=== PATIENT | male | born 1975 | race Caucasian/White ===

== ENCOUNTER 2022-11-29 15:48 | Emergency (ER) | payer MEDICAID, SELFPAY ==
[2022-11-29 15:50] VITALS: BP 121/84; PULSE 79; RESP 18; TEMP 36.6; O2SAT 98; BMI 23.7
--- NOTE | 2022-11-29 15:53 | ECG_ITS ---
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
--- NOTE | 2022-11-29 15:53 | XR_ITS ---
The [address] [address] Patient Name: ROXY MURILLO MRN: [id number] date: 1975 Sex: M Assigned Patient Location: ER Current Patient Location: ER Accession/Order Number: [id number] Exam Date: 11/29/2022 16:27 Report Date: 11/29/2022 16:53 At the request of: SUNSHINE EUGENE Procedure: XR chest 1V EXAMINATION: XR chest 1V HISTORY: Right elbow pain and eye laceration following fall COMPARISON: None. TECHNIQUE: Portable chest FINDINGS: The lung parenchyma is free of consolidation or infiltrate. No pneumothorax or pleural effusion. The cardiac, mediastinal and hilar contours are normal. The visualized osseous structures exhibit no gross abnormality. XR/XR chest 1V IMPRESSION: No acute cardiopulmonary abnormality. Electronically authenticated by: BRIANNA MCKEON Date: 11/29/2022 16:53
--- NOTE | 2022-11-29 15:53 | XR_ITS ---
The [address] [address] Patient Name: ROXY MURILLO MRN: [id number] date: 1975 Sex: M Assigned Patient Location: ER Current Patient Location: ER Accession/Order Number: [id number] Exam Date: 11/29/2022 16:27 Report Date: 11/29/2022 16:56 At the request of: SUNSHINE EUGENE Procedure: XR pelvis 1-2V EXAM: XR pelvis 1-2V HISTORY: Right elbow pain and eye laceration following fall COMPARISON: None. TECHNIQUE: AP pelvis FINDINGS: IMPRESSION: No visualized fracture, dislocation, subluxation or osseous lesions. The hip joints, pubic symphysis and sacroiliac joints are unremarkable. Patient is status post retrograde intramedullary fixation of the right femur. Electronically authenticated by: BRIANNA MCKEON Date: 11/29/2022 16:56
--- NOTE | 2022-11-29 15:53 | CT_ITS ---
The [address] [address] Patient Name: ROXY MURILLO MRN: [id number] date: 1975 Sex: M Assigned Patient Location: ER Current Patient Location: ER Accession/Order Number: [id number] Exam Date: 11/29/2022 16:04 Report Date: 11/29/2022 16:52 At the request of: SUNSHINE EUGENE Procedure: CT head/brain wo con EXAM: CT head/brain wo con HISTORY: Fall COMPARISON: None. TECHNIQUE: Axial CT images were obtained of the head without intravenous contrast. Multiplanar reconstructions were performed. FINDINGS: No acute intracranial hemorrhage. No acute loss of cantu/white differentiation. There are chronic multifocal areas of encephalomalacia in the frontal lobes bilaterally. The ventricles and sulci are prominent due to parenchymal volume loss. The osseous structures are unremarkable. No soft tissue abnormality identified. The paranasal sinuses and mastoid air cells are clear. Cerumen noted in the left external auditory canal. CT/CT head/brain wo con IMPRESSION: 1. No acute intracranial abnormality. 2. Multifocal chronic frontal infarctions. 3. Parenchymal volume loss. Electronically authenticated by: ROZINA ALEGRIA Date: 11/29/2022 16:52
--- NOTE | 2022-11-29 15:53 | CT_ITS ---
The [address] [address] Patient Name: ROXY MURILLO MRN: [id number] date: 1975 Sex: M Assigned Patient Location: ER Current Patient Location: Accession/Order Number: [id number] Exam Date: 11/29/2022 16:04 Report Date: 11/29/2022 16:57 At the request of: SUNSHINE EUGENE Procedure: CT cervical spine wo con EXAM: CT cervical spine wo con HISTORY: Fall COMPARISON: None. TECHNIQUE: Axial CT images were obtained of the cervical spine without intravenous contrast. Multiplanar reconstructions were performed. FINDINGS: No acute fracture or malalignment. There is a chronic reversal of the normal cervical lordosis with bony fusion across the left-sided facet joints at the C4-C5 level. Moderate to severe neural foraminal stenosis is present at the left C4-C5 level due to facet and uncovertebral hypertrophy. There is a moderate left neural foraminal stenosis at C3-C4 due to uncovertebral and facet hypertrophy. Otherwise mild multilevel degenerative changes are present. Unremarkable appearance of the paraspinal soft tissues. CT/CT cervical spine wo con IMPRESSION: 1. No acute abnormality. Electronically authenticated by: ROZINA ALEGRIA Date: 11/29/2022 16:57
--- NOTE | 2022-11-29 15:55 | XR_ITS ---
The [address] [address] Patient Name: ROXY MURILLO MRN: [id number] date: 1975 Sex: M Assigned Patient Location: ER Current Patient Location: ER Accession/Order Number: [id number] Exam Date: 11/29/2022 16:27 Report Date: 11/29/2022 16:55 At the request of: SUNSHINE EUGENE Procedure: XR elbow RT min 3V EXAM: XR elbow RT min 3V HISTORY: Elbow pain following fall COMPARISON: None. FINDINGS: IMPRESSION: 3 limited oblique views are presented for interpretation. No gross displaced fracture, dislocation, subluxation or osseous lesion. Nondisplaced fracture cannot be excluded on these images. Electronically authenticated by: BRIANNA MCKEON Date: 11/29/2022 16:55
--- NOTE | 2022-11-29 16:02 | ED.HEATRA1 ---
HPI - Head Injury General Chief complaint: Head Injury Stated complaint: HEAD INJURY Time Seen by Provider: 11/29/22 15:52 Source: patient Mode of arrival: ambulance Limitations: no limitations History of Present Illness HPI Narrative: patient is a 47-year-old male history of traumatic brain injury who resides in a local [place] [facility] facility presents to the Emergency Room by ambulance after a head injury. care home reports that the patient fell earlier today but had no injury and immediately prior to arrival, the patient fell again and hit his head with a right eyebrow laceration. Patient is on aspirin, no other anticoagulation. He arrives in a c-collar complaining of pain in the neck and right elbow. He is unsure why he fell but he believes he tripped over something while walking. Unknown last tetanus. Bleeding is well-controlled to the right eyebrow. Related Data Home Medications Medication Instructions Recorded Confirmed acetaminophen 650 mg 650 mg PO Q12H 11/29/22 11/29/22 tablet,extended release (8HR Muscle Aches-Pain) amantadine HCl 100 mg capsule 100 mg PO BID 11/29/22 11/29/22 aspirin 81 mg capsule 81 mg PO DAILY 11/29/22 11/29/22 atorvastatin 10 mg tablet 10 mg PO DAILY 11/29/22 11/29/22 atorvastatin 10 mg tablet mg 11/29/22 baclofen 11/29/22 baclofen 10 mg tablet 20 mg PO Q12H 11/29/22 11/29/22 cetirizine 10 mg tablet (Allergy 10 mg PO DAILY PRN allergy symptoms 11/29/22 11/29/22 Relief (cetirizine)) cholecalciferol (vitamin D3) 1,250 1,250 mcg PO QWEEK 11/29/22 11/29/22 mcg (50,000 unit) capsule dextromethorphan 20 mg-quinidine 1 cap PO DAILY 11/29/22 11/29/22 10 mg capsule (Nuedexta) divalproex 125 mg tablet,delayed 250 mg PO Q12H 11/29/22 11/29/22 release famotidine 20 mg tablet (Pepcid) 20 mg PO DAILY 11/29/22 11/29/22 guaifenesin 100 mg/5 mL oral 200 mg PO Q4H PRN congestion 11/29/22 11/29/22 liquid (Chest Congestion Relief) lorazepam 0.5 mg tablet (Ativan) 0.25 mg PO DAILY PRN agitation 11/29/22 11/29/22 magnesium oxide 400 mg (241.3 mg 400 mg PO DAILY 11/29/22 11/29/22 magnesium) tablet (MgO) metoprolol tartrate 25 mg tablet 25 mg PO Q12H 11/29/22 11/29/22 oxycodone 5 mg capsule 5 mg PO Q6H 11/29/22 11/29/22 sennosides 8.6 mg tablet (Natural 8.6 mg PO DAILY 11/29/22 11/29/22 Senna Laxative) topiramate 25 mg tablet (Topamax) 25 mg PO DAILY 11/29/22 11/29/22 topiramate 50 mg tablet (Topamax) 50 mg PO BID 11/29/22 11/29/22 Allergies Allergy/AdvReac Type Severity Reaction Status Date / Time PCN AdvReac Intermediate Uncoded 11/29/22 15:53 Review of Systems ROS Constitutional Denies: fever or chills Ears, nose, mouth, and throat Reports: neck pain; Denies: throat pain Cardiovascular Denies: chest pain Respiratory Denies: shortness of breath or cough Gastrointestinal Denies: abdominal pain, nausea or vomiting Musculoskeletal Reports: neck pain and extremity pain; Denies: back pain Integumentary/Breast Denies: rash Neurological Denies: headache [facility] Social History Smoking status: Current every day smoker Exam Narrative Exam Narrative: Gen.: Awake, alert, in no distress Head: Normocephalic, 3 cm laceration to the right eyebrow, no active bleeding. No Suggs sign or raccoon eyes ENT: Moist mucous membranes Respiratory: No respiratory distress, lungs clear bilaterally Cardio: Regular rate and rhythm Gastrointestinal: Abdomen is soft, nondistended and nontender to palpation Extremities: weakness on the right side, tenderness and mild swelling of the right elbow, no tenderness of the biceps, no erythema noted. No bony tenderness of the lower extremities, pain with pushing on the pelvis and hips bilaterally. Psych: Normal mood and affect Neuro: chronic weakness to the right side from traumatic brain injury; speech is slow, and mild dysarthria noted, at baseline Skin: Warm, dry Constitutional Vital Signs, click to edit/add: Last Vital Signs Temp 97.8 F 11/29/22 15:50 Pulse 79 11/29/22 15:50 Resp 18 11/29/22 15:50 BP 121/84 11/29/22 15:50 Pulse Ox 98 11/29/22 15:50 O2 Del Method Room Air 11/29/22 16:01 Course Vital Signs Vital signs: Vital Signs Temperature 97.8 F 11/29/22 15:50 Pulse Rate 79 11/29/22 15:50 Respiratory Rate 18 11/29/22 15:50 Blood Pressure 121/84 11/29/22 15:50 Pulse Oximetry 98 11/29/22 15:50 Temperature 97.8 F 11/29/22 15:50 Pulse Rate 79 11/29/22 15:50 Respiratory Rate 18 11/29/22 15:50 Blood Pressure 121/84 11/29/22 15:50 Pulse Oximetry 98 11/29/22 15:50 Oxygen Delivery Method Room Air 11/29/22 16:01 MDM - Head Injury MDM Narrative Medical decision making narrative: patient removed his c-collar shortly after arrival to the emergency department. CT of the head, C-spine, x-rays of the chest, pelvis, right elbow show no evidence of acute process. These are reviewed by the radiologist. Laceration was repaired without difficulty. Please see procedure note for details. Rozel given for pain. Tetanus is updated in the Emergency Room. Patient is discharged back to [place] care[place] [facility] [place] for further evaluation and treatment per PCP. Sutures removed in 7-8 days with PCP. Laceration repair: Done under sterile conditions. The use of Shur-Clens prep the area. Local injection with lidocaine with epi 1% was used, approximately 4 cc. The wound was irrigated copiously with normal saline. The wound was explored there was no evidence of foreign material. The laceration was approximated with 4-0 nylon. 5 simple interrupted sutures were placed. Patient tolerated the procedure well. The patient was neurovascularly intact post. the patient had bacitracin applied to the laceration and a dry sterile dressing was place. The patient will need to follow-up in the next 7-8 days for removal Medical Records Attestation: I reviewed the patient's medical records. ECG Data Attestation: I personally reviewed and interpreted this ECG as follows: (normal sinus rhythm at a rate of sixty-six, no acute ST elevation or ectopy. EKG reviewed by attending physician) ECG interpretation date: 11/29/22 ECG interpretation time: 17:16 Discharge Plan Discharge Chief Complaint: Head Injury Clinical Impression: Closed head injury, Facial laceration, Fall Time of Disposition Decision: 17:17 Condition: Good Prescriptions / Home Meds: No Action amantadine HCl 100 mg capsule 100 mg PO BID aspirin 81 mg capsule 81 mg PO DAILY lorazepam [Ativan] 0.5 mg tablet 0.25 mg PO DAILY PRN (Reason: agitation) atorvastatin 10 mg tablet 10 mg PO DAILY baclofen atorvastatin 10 mg tablet baclofen 10 mg tablet 20 mg PO Q12H cetirizine [Allergy Relief (cetirizine)] 10 mg tablet 10 mg PO DAILY PRN (Reason: allergy symptoms) cholecalciferol (vitamin D3) 1,250 mcg (50,000 unit) capsule 1,250 mcg PO QWEEK divalproex 125 mg tablet,delayed release (DR/EC) 250 mg PO Q12H famotidine [Pepcid] 20 mg tablet 20 mg PO DAILY metoprolol tartrate 25 mg tablet 25 mg PO Q12H Nuedexta 20-10 mg capsule 1 cap PO DAILY guaifenesin [Chest Congestion Relief] 100 mg/5 mL liquid 200 mg PO Q4H PRN (Reason: congestion) magnesium oxide [MgO] 400 mg (241.3 mg magnesium) tablet 400 mg PO DAILY oxycodone 5 mg capsule 5 mg PO Q6H sennosides [Natural Senna Laxative] 8.6 mg tablet 8.6 mg PO DAILY topiramate [Topamax] 25 mg tablet 25 mg PO DAILY topiramate [Topamax] 50 mg tablet 50 mg PO BID acetaminophen [8HR Muscle Aches-Pain] 650 mg tablet extended release 650 mg PO Q12H Instructions: Laceration (ED), Head Injury (ED), Fall Prevention (ED) Additional Instructions: Sutures removed in 7-8 days; wound care soap and water daily, apply antibiotic ointment Stand Alone Forms: Portal Instructions Referrals: Physician,Non-Staff, MD [Primary Care Provider] - 1 week
--- NOTE | 2022-11-29 16:03 | PC.NURSE ---
right elbow swelling and pt reports pain. no bruising observed
[2022-11-29] MEDS: ADACEL DIPH,PERTUSS(ACELL),TET VAC/PF 0.5 ML ADULT SYRINGE IM (16:37)
[2022-11-29] MEDS: BACITRACIN 0.9 GM PACKET 1 PACKET TOPICAL (16:41)
[2022-11-29] MEDS: LIDOCAINE HCL 1%-EPINEPHRINE 1:100,000 20 ML MDV 10 ML INJ (16:41)
[2022-11-29] MEDS: HYDROCODONE/ACETAMINOPHEN 5-325 MG TABLET 1 TAB PO (17:04)
== END 2022-11-29 17:29 | disposition home or self-care (01) ==
PROVIDERS: Emergency Provider Emergency Medicine
DX: S01.111A Laceration without foreign body of right eyelid and periocular area, initial encounter (principal); S09.8XXA Other specified injuries of head, initial encounter; W19.XXXA Unspecified fall, initial encounter; Z79.82 Long term (current) use of aspirin; Z87.820 Personal history of traumatic brain injury; Z79.899 Other long term (current) drug therapy; F17.210 Nicotine dependence, cigarettes, uncomplicated; Z23 Encounter for immunization
CPT/HCPCS: 12013; 70450; 71045; 72125; 72170; 73080; 80053; 84484; 90471; 90715; 93005; 99285

== ENCOUNTER 2023-02-24 17:25 | Emergency (ER) | payer MEDICAID, SELFPAY ==
[2023-02-24 17:28] VITALS: BP 122/76; PULSE 87; RESP 20; TEMP 36.6; O2SAT 96; BMI 26.5
--- NOTE | 2023-02-24 17:28 | ECG_ITS ---
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
--- NOTE | 2023-02-24 17:29 | ED_ITS ---
HPI - Psych General Chief Complaint: Psychiatric Symptoms Stated Complaint: psych Time Seen by Provider: 02/24/23 17:28 Source: Reports patient Mode of arrival: ambulance Related Data Home Medications Medication Instructions Recorded Confirmed acetaminophen 650 mg 650 mg PO Q12H 11/29/22 11/29/22 tablet,extended release (8HR Muscle Aches-Pain) amantadine HCl 100 mg capsule 100 mg PO BID 11/29/22 11/29/22 aspirin 81 mg capsule 81 mg PO DAILY 11/29/22 11/29/22 atorvastatin 10 mg tablet 10 mg PO DAILY 11/29/22 11/29/22 atorvastatin 10 mg tablet mg 11/29/22 baclofen 11/29/22 baclofen 10 mg tablet 20 mg PO Q12H 11/29/22 11/29/22 cetirizine 10 mg tablet (Allergy 10 mg PO DAILY PRN allergy symptoms 11/29/22 11/29/22 Relief (cetirizine)) cholecalciferol (vitamin D3) 1,250 1,250 mcg PO QWEEK 11/29/22 11/29/22 mcg (50,000 unit) capsule dextromethorphan 20 mg-quinidine 1 cap PO DAILY 11/29/22 11/29/22 10 mg capsule (Nuedexta) divalproex 125 mg tablet,delayed 250 mg PO Q12H 11/29/22 11/29/22 release famotidine 20 mg tablet (Pepcid) 20 mg PO DAILY 11/29/22 11/29/22 guaifenesin 100 mg/5 mL oral 200 mg PO Q4H PRN congestion 11/29/22 11/29/22 liquid (Chest Congestion Relief) lorazepam 0.5 mg tablet (Ativan) 0.25 mg PO DAILY PRN agitation 11/29/22 11/29/22 magnesium oxide 400 mg (241.3 mg 400 mg PO DAILY 11/29/22 11/29/22 magnesium) tablet (MgO) metoprolol tartrate 25 mg tablet 25 mg PO Q12H 11/29/22 11/29/22 oxycodone 5 mg capsule 5 mg PO Q6H 11/29/22 11/29/22 sennosides 8.6 mg tablet (Natural 8.6 mg PO DAILY 11/29/22 11/29/22 Senna Laxative) topiramate 25 mg tablet (Topamax) 25 mg PO DAILY 11/29/22 11/29/22 topiramate 50 mg tablet (Topamax) 50 mg PO BID 11/29/22 11/29/22 Allergies Allergy/AdvReac Type Severity Reaction Status Date / Time PCN AdvReac Intermediate Uncoded 11/29/22 15:53 PFSH PFSH Social History Smoking status: Light tobacco smoker Exam Constitutional Vital Signs, click to edit/add: Last Vital Signs Temp 97.9 F 02/24/23 17:28 Pulse 87 02/24/23 17:28 Resp 20 02/24/23 17:28 BP 122/76 02/24/23 17:28 Pulse Ox 96 02/24/23 17:28 O2 Del Method Room Air 02/24/23 17:28 Course Vital Signs Vital signs: Vital Signs Temperature 97.9 F 02/24/23 17:28 Pulse Rate 87 02/24/23 17:28 Respiratory Rate 20 02/24/23 17:28 Blood Pressure 122/76 02/24/23 17:28 Pulse Oximetry 96 02/24/23 17:28 Oxygen Delivery Method Room Air 02/24/23 17:28 Temperature 97.9 F 02/24/23 17:28 Pulse Rate 87 02/24/23 17:28 Respiratory Rate 20 02/24/23 17:28 Blood Pressure 122/76 02/24/23 17:28 Pulse Oximetry 96 02/24/23 17:28 Oxygen Delivery Method Room Air 02/24/23 17:28 MDM - Psych MDM Narrative Medical decision making narrative: patient is calm, redirectable in the Emergency Room. He was not aggressive with staff, he did have moments of being agitated with straight catheterization but was able to be redirected very easily by staff. Lab studies are unremarkable. Case is discussed with [facility]. [facility] discussed the case with the patient's mother at bedside as well as with the talent development director at the long-term acute care facility where he is a resident. It appears as though much of the patient's presentation to the Emergency Room is a staffing issue at the senior care as they're having difficulty redirecting him due to staffing issues. Patient's mother does not feel he needs to be placed in an inpatient psychiatric facility. [facility] counseling does not feel the patient represents an acute psychiatric risk. This was related to the talent development director at [place] who discussed with the patient's mother and [facility] counseling on a phone call conference and the patient is discharged back to his residence. Medical Records Attestation: I reviewed the patient's medical records. Lab Data Attestation: I reviewed the patient's lab results. Labs: Lab Results 02/24/23 02/24/23 Range/Units 17:43 19:40 WBC 8.0 (4.0-11.0) 10^3/uL RBC 4.71 (4.70-6.10) 10^6/uL Hgb 15.8 (14.0-18.0) g/dL Hct 48.7 (42.0-54.0) % MCV 103.4 H (80.0-94.0) fL MCH 33.5 (25.9-34.0) pg MCHC 32.4 (29.9-35.2) g/dL RDW 13.2 (11.0-15.0) % Plt Count 202 (150-450) 10^3/uL MPV 10.9 (9.5-13.5) fL Neut % (Auto) 45.8 (43.0-75.0) % Lymph % (Auto) 38.3 (20.5-60.0) % [place] % (Auto) 10.7 (1.7-12.0) % Eos % (Auto) 4.2 (0.9-7.0) % Baso % (Auto) 0.6 (0.2-2.0) % Neut # (Auto) 3.7 (1.4-6.5) 10^3/uL Lymph # (Auto) 3.1 (1.2-3.8) 10^3/uL [place] # (Auto) 0.9 H (0.3-0.8) 10^3/uL Eos # (Auto) 0.3 (0.0-0.7) 10^3/uL Baso # (Auto) 0.1 (0.0-0.1) 10^3/uL Abs Immat Gran (auto) 0.03 (0.00-0.03) 10^3/uL Imm/Tot Granulo (auto) 0.4 (0.0-0.5) % Sodium 138 (136-145) mmol/L Potassium 3.7 (3.5-5.1) mmol/L Chloride 102 (98-107) mmol/L Carbon Dioxide 28.0 (21.0-32.0) mmol/L Anion Gap 11.7 BUN 20.0 H (7.0-18.0) mg/dL Creatinine 1.04 (0.70-1.30) mg/dL Est GFR ( Amer) >60 (>=60) Est GFR (Non-Af Amer) >60 (>=60) BUN/Creatinine Ratio 19.2 Glucose 124 H (74-106) mg/dL Calcium 9.2 (8.5-10.1) mg/dL Total Bilirubin 0.2 (0.2-1.0) mg/dL AST 18 (15-37) U/L ALT 53 (16-63) U/L Alkaline Phosphatase 69 (46-116) U/L Total Protein 7.7 (6.4-8.2) g/dL Albumin 3.9 (3.4-5.0) g/dL Globulin 3.8 g/dL Albumin/Globulin Ratio 1.0 Salicylates <2.8 (<=19.9) mg/dL Urine Opiates Screen Negative (NEGATIVE) Ur Buprenorphine Scrn Negative (NEGATIVE) Ur Oxycodone Screen Negative (NEGATIVE) Urine Methadone Screen Negative (NEGATIVE) Ur Propoxyphene Screen N (NEGATIVE) Acetaminophen <2.0 L (10.0-30.0) ug/mL Ur Barbiturates Screen Negative (NEGATIVE) U Tricyclic Antidepress Negative (NEGATIVE) Ur Phencyclidine Scrn Negative (NEGATIVE) Ur Amphetamines Screen Negative (NEGATIVE) U Methamphetamines Scrn Negative (NEGATIVE) U Benzodiazepines Scrn Positive A (NEGATIVE) Urine Cocaine Screen Negative (NEGATIVE) U Cannabinoids Screen Negative (NEGATIVE) Ethanol Quant <3 mg/dL ECG Data Attestation: I personally reviewed and interpreted this ECG as follows: (normal sinus rhythm at a rate of eighty-five, no acute ST elevation or ectopy. EKG reviewed by attending physician) Discharge Plan Discharge Chief Complaint: Psychiatric Symptoms Clinical Impression: Agitation Time of Disposition Decision: 21:01 Condition: Good Prescriptions / Home Meds: No Action amantadine HCl 100 mg capsule 100 mg PO BID aspirin 81 mg capsule 81 mg PO DAILY lorazepam [Ativan] 0.5 mg tablet 0.25 mg PO DAILY PRN (Reason: agitation) atorvastatin 10 mg tablet 10 mg PO DAILY baclofen atorvastatin 10 mg tablet baclofen 10 mg tablet 20 mg PO Q12H cetirizine [Allergy Relief (cetirizine)] 10 mg tablet 10 mg PO DAILY PRN (Reason: allergy symptoms) cholecalciferol (vitamin D3) 1,250 mcg (50,000 unit) capsule 1,250 mcg PO QWEEK divalproex 125 mg tablet,delayed release (DR/EC) 250 mg PO Q12H famotidine [Pepcid] 20 mg tablet 20 mg PO DAILY metoprolol tartrate 25 mg tablet 25 mg PO Q12H Nuedexta 20-10 mg capsule 1 cap PO DAILY guaifenesin [Chest Congestion Relief] 100 mg/5 mL liquid 200 mg PO Q4H PRN (Reason: congestion) magnesium oxide [MgO] 400 mg (241.3 mg magnesium) tablet 400 mg PO DAILY oxycodone 5 mg capsule 5 mg PO Q6H sennosides [Natural Senna Laxative] 8.6 mg tablet 8.6 mg PO DAILY topiramate [Topamax] 25 mg tablet 25 mg PO DAILY topiramate [Topamax] 50 mg tablet 50 mg PO BID acetaminophen [8HR Muscle Aches-Pain] 650 mg tablet extended release 650 mg PO Q12H Instructions: Cognitive Disorders after Traumatic Brain Injury (ED) Stand Alone Forms: Portal Instructions Referrals: Physician,Non-Staff, MD [Primary Care Provider] - 1 week
--- NOTE | 2023-02-24 17:56 | PC.NURSE ---
Per report from [facility] patient was aggressive with staff there. On arrival to ER patient calm and cooperative
[2023-02-24 18:04] LABS: Basophils Absolute Auto 0.1 10^3/uL (0.0-0.1); Basophils Percent Auto 0.6 % (0.2-2.0); Eosinophils Absolute Auto 0.3 10^3/uL (0.0-0.7); Eosinophils Percent Auto 4.2 % (0.9-7.0); Hematocrit 48.7 % (42.0-54.0); Hemoglobin 15.8 g/dL (14.0-18.0); Immature Granulocytes Abs Auto 0.03 10^3/uL (0.00-0.03); Immature Granulocytes Pct Auto 0.4 % (0.0-0.5); Lymphocytes Absolute Auto 3.1 10^3/uL (1.2-3.8); Lymphocytes Percent Auto 38.3 % (20.5-60.0); Mean Corpuscular HGB Conc 32.4 g/dL (29.9-35.2); Mean Corpuscular Hemoglobin 33.5 pg (25.9-34.0); Mean Corpuscular Volume 103.4 fL (80.0-94.0); Mean Platelet Volume 10.9 fL (9.5-13.5); Monocytes Absolute Auto 0.9 10^3/uL (0.3-0.8); Monocytes Percent Auto 10.7 % (1.7-12.0); Neutrophils Absolute Auto 3.7 10^3/uL (1.4-6.5); Neutrophils Percent Auto 45.8 % (43.0-75.0); Platelet Count 202 10^3/uL (150-450); Red Blood Count 4.71 10^6/uL (4.70-6.10); Red Cell Distribution Width 13.2 % (11.0-15.0)
[2023-02-24 18:05] LABS: Alanine Aminotransferase 53 U/L (16-63); Albumin Level 3.9 g/dL (3.4-5.0); Alkaline Phosphatase 69 U/L (46-116); Anion Gap 11.7; Aspartate Amino Transferase 18 U/L (15-37); BUN Creatinine Ratio 19.2; Bilirubin Total 0.2 mg/dL (0.2-1.0); Calcium 9.2 mg/dL (8.5-10.1); Chloride 102 mmol/L (98-107); Estimated GFR (African America >60 (>=60); Estimated GFR (Non-African Ame >60 (>=60); Globulin 3.8 g/dL; Glucose 124 mg/dL (74-106); Potassium 3.7 mmol/L (3.5-5.1); Salicylate <2.8 mg/dL (<=19.9); Sodium 138 mmol/L (136-145); Total Protein 7.7 g/dL (6.4-8.2)
[2023-02-24 18:06] LABS: Acetaminophen <2.0 ug/mL (10.0-30.0); Ethanol <3 mg/dL
--- NOTE | 2023-02-24 20:02 | PC.NURSE ---
Patient and Mother speaking with agronomy teacher via video conference at this time
[2023-02-24 20:03] LABS: Amphetamine Screen Urine NEGATIVE (NEGATIVE); Barbiturates Screen Urine NEGATIVE (NEGATIVE); Benzodiazepines Screen Urine POSITIVE (NEGATIVE); Buprenorphine Screen Urine NEGATIVE (NEGATIVE); Cannabinoid Screen Urine NEGATIVE (NEGATIVE); Cocaine Screen Urine NEGATIVE (NEGATIVE); Methadone Screen Urine NEGATIVE (NEGATIVE); Methamphetamines Screen Urine NEGATIVE (NEGATIVE); Opiate Screen Urine NEGATIVE (NEGATIVE); Oxycodone Screen Urine NEGATIVE (NEGATIVE); Phencyclidine Screen Urine NEGATIVE (NEGATIVE); Tricyclic Antidepressant Urine NEGATIVE (NEGATIVE)
--- NOTE | 2023-02-24 21:27 | PC.NURSE ---
Mother and patient finished talking with associate professor of counseling
== END 2023-02-24 22:34 | disposition home or self-care (01) ==
PROVIDERS: Physician Assistant; Emergency Provider Emergency Medicine
DX: R45.1 Restlessness and agitation (principal); F17.210 Nicotine dependence, cigarettes, uncomplicated; Z79.82 Long term (current) use of aspirin; Z79.899 Other long term (current) drug therapy
CPT/HCPCS: 36415; 80053; 80179; 80307; 80320; 80329; 85025; 93005; 99284

== ENCOUNTER 2023-03-01 21:07 | Emergency (ER) | payer MEDICAID, SELFPAY ==
[2023-03-01 21:09] VITALS: BP 151/111; PULSE 67; RESP 18; TEMP 36.4; O2SAT 99; BMI 21.7
--- NOTE | 2023-03-01 21:20 | ECG_ITS ---
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
--- NOTE | 2023-03-01 21:20 | CT_ITS ---
The [address] [address] Patient Name: ROXY MURILLO MRN: [id number] date: 1975 Sex: M Assigned Patient Location: ED.MAIN Current Patient Location: ED.MAIN Accession/Order Number: [id number] Exam Date: 03/01/2023 22:00 Report Date: 03/01/2023 22:19 At the request of: SUNSHINE EUGENE Procedure: CT head/brain wo con INDICATION: 47 years old; Male. Psychiatric evaluation. TECHNIQUE: CT Head (ax/cor/sag reformats). Ionizing radiation dose reduced via iterative reconstruction/FBP blend and body size kV/mA adjustment. Comparison: Head CT dated 11/29/2022. FINDINGS: POSTOPERATIVE CHANGES: None. BRAIN PARENCHYMA: There is bifrontal low-density with encephalomalacia and gliosis worse on the right than the left. Overlying calvarial deformity is seen in the right. The appearance of be consistent with old trauma. No intraparenchymal or extra-axial hemorrhage. No mass effect. No midline shift or herniation. Normal cantu/white differentiation is otherwise appreciated allowing for the encephalomalacia and gliosis. VENTRICLES/EXTRA-AXIAL SPACES: Enlarged, consistent with atrophy which is out of proportion to patient's age. SINUSES/MASTOIDS: Visualized sinuses are clear. Mastoids and middle ears are clear. MSK: Calvarial deformity in the right frontal region which has the appearance of old trauma. OTHER: No hyperdense intraluminal thrombus. CT/CT head/brain wo con IMPRESSION: 1. Bifrontal encephalomalacia and gliosis, worse on the right than the left. 2. Atrophy which is out of proportion to patient's age. 3. No acute intracranial abnormality. No hemorrhage or mass effect. Electronically authenticated by: ROXY SUTTON Date: 03/01/2023 22:19
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
--- NOTE | 2023-03-01 21:26 | PC.NURSE ---
Pt presents to ER via EMS from [facility] Per report pt was walking around naked requesting sexual favors from the nurses and other residents Pt was also said to have been aggressive On arrival, pt is calm, cooperative, and appropriate Pt was recently seen here for the same type of situation, pt has a TBI and there has been no recent changes in his behavior
[2023-03-01 21:39] LABS: Basophils Absolute Auto 0.1 10^3/uL (0.0-0.1); Basophils Percent Auto 0.5 % (0.2-2.0); Eosinophils Absolute Auto 0.4 10^3/uL (0.0-0.7); Eosinophils Percent Auto 3.2 % (0.9-7.0); Hematocrit 47.5 % (42.0-54.0); Hemoglobin 15.3 g/dL (14.0-18.0); Immature Granulocytes Abs Auto 0.05 10^3/uL (0.00-0.03); Immature Granulocytes Pct Auto 0.4 % (0.0-0.5); Lymphocytes Absolute Auto 3.9 10^3/uL (1.2-3.8); Lymphocytes Percent Auto 32.6 % (20.5-60.0); Mean Corpuscular HGB Conc 32.2 g/dL (29.9-35.2); Mean Corpuscular Hemoglobin 33.5 pg (25.9-34.0); Mean Corpuscular Volume 103.9 fL (80.0-94.0); Monocytes Absolute Auto 1.6 10^3/uL (0.3-0.8); Neutrophils Percent Auto 50.3 % (43.0-75.0); Platelet Count 195 10^3/uL (150-450); Red Blood Count 4.57 10^6/uL (4.70-6.10); Red Cell Distribution Width 13.2 % (11.0-15.0)
[2023-03-01 21:52] LABS: Acetaminophen 3.9 ug/mL (10.0-30.0); Ethanol <3 mg/dL
[2023-03-01 21:54] LABS: Alanine Aminotransferase 30 U/L (16-63); Albumin Level 3.8 g/dL (3.4-5.0); Alkaline Phosphatase 74 U/L (46-116); Anion Gap 10.7; Aspartate Amino Transferase 10 U/L (15-37); BUN Creatinine Ratio 8.5; Bilirubin Total 0.2 mg/dL (0.2-1.0); Calcium 8.9 mg/dL (8.5-10.1); Carbon Dioxide 27.4 mmol/L (21.0-32.0); Chloride 103 mmol/L (98-107); Estimated GFR (African America >60 (>=60); Estimated GFR (Non-African Ame >60 (>=60); Globulin 3.9 g/dL; Glucose 124 mg/dL (74-106); Potassium 4.1 mmol/L (3.5-5.1); Sodium 137 mmol/L (136-145); Total Protein 7.7 g/dL (6.4-8.2)
[2023-03-01 21:57] LABS: Salicylate 10.3 mg/dL (<=19.9)
[2023-03-01 22:03] LABS: Thyroid Stimulating Hormone 1.327 uIU/mL (0.358-3.740)
[2023-03-02 04:00] VITALS: BP 125/89; PULSE 78; RESP 16; O2SAT 98
== END 2023-03-02 04:04 ==
PROVIDERS: Physician Assistant; Emergency Provider Emergency Medicine; PCP Internal Medicine
DX: F91.9 Conduct disorder, unspecified (principal); Z87.820 Personal history of traumatic brain injury; Z79.82 Long term (current) use of aspirin; Z79.899 Other long term (current) drug therapy
CPT/HCPCS: 36415; 70450; 80053; 80179; 80307; 80320; 80329; 84443; 85025; 93005; 99285

== ENCOUNTER 2023-03-29 10:29 | Emergency (ER) | payer MEDICAID, SELFPAY ==
[2023-03-29 10:36] VITALS: BP 137/88; PULSE 89; RESP 20; TEMP 36.4; O2SAT 98; BMI 23.0
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
--- NOTE | 2023-03-29 10:41 | ECG_ITS ---
The [facility] Test Date: 2023-03-29 Pat Name: ROXY MURILLO Department: Room: - Gender: Male Quantitative Analyst Developer: : 1975 Requested By: MARIZA BYRNE Order Number: [id number] Reading MD: PATTY PEREYRA Measurements Intervals [place] Rate: 80 P: 55 MS: 164 QRS: -52 QRSD: 94 T: 66 QT: 384 QTc: 420 Interpretive Statements 1100 Sinus rhythm 2630 Left anterior fascicular block 4068 Nonspecific Tw[place] abnormality 8003 Consistent with pulmonary disease 9150 abnormal ECG Electronically Signed On 03-30-2023 7:07:46 EST by PATTY PEREYRA
--- NOTE | 2023-03-29 10:41 | CT_ITS ---
The [address] [address] Patient Name: ROXY MURILLO MRN: [id number] date: 1975 Sex: M Assigned Patient Location: ER Current Patient Location: [facility] Accession/Order Number: [id number] Exam Date: 03/29/2023 11:05 Report Date: 03/29/2023 11:34 At the request of: PIERCE CARRERA Procedure: CT head/brain wo con EXAM: CT head/brain wo con; [id number] REASON FOR EXAM: altered behavior COMPARISON: Head CT 03/01/2023. TECHNIQUE: Axial CT images of the head obtained without contrast. Multiplanar reformats generated at the scanner. Dose reduction technique used: Automated exposure control and/or adjustment of the mA and/or kV according to patient size and/or use of iterative reconstruction technique. FINDINGS: Parenchyma: -Moderate generalized cerebral volume loss. -No midline shift or mass effect. Basilar cisterns are patent. -No acute intracranial hemorrhage. -No new loss of cortical cantu-white differentiation to indicate acute cortical infarct. -Medium-sized regions of bilateral frontal hypoattenuation encephalomalacia, similar compared with 03/01/2023 and compatible with the sequela of remote infarcts. Extra-axial spaces: No extra-axial fluid collection or hemorrhage. Ventricles: Normal in size and symmetric. Paranasal sinuses: Visualized paranasal sinuses are clear. Mastoid air cells: Visualized mastoids are clear. Orbits: No acute abnormality. Osseous: No acute findings. Soft tissues: Moderate amount of presumed cerumen in the left external auditory canal. CT/CT head/brain wo con IMPRESSION: 1. No acute intracranial abnormality demonstrated. 2. 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 Electronically authenticated by: JCARLOS MOISE Date: 03/29/2023 11:34
--- NOTE | 2023-03-29 10:42 | ED_ITS ---
HPI - General Adult General Chief complaint: Altered Mental Status Stated complaint: ANXIETY Time Seen by Provider: 03/29/23 10:38 History of Present Illness HPI narrative: 48-year-old male presents for medical evaluation. He comes in from extended care facility and was sent here because of aggressive behavior. He has a history of traumatic brain injury and apparently has had increasing aggression. He was reportedly pushing at the staff there. He doesn't know why he is here. He doesn 't seem to have any physical complaints. Related Data Home Medications Medication Instructions Recorded Confirmed acetaminophen 650 mg 650 mg PO Q12H 11/29/22 11/29/22 tablet,extended release (8HR Muscle Aches-Pain) amantadine HCl 100 mg capsule 100 mg PO BID 11/29/22 11/29/22 aspirin 81 mg capsule 81 mg PO DAILY 11/29/22 11/29/22 atorvastatin 10 mg tablet 10 mg PO DAILY 11/29/22 11/29/22 atorvastatin 10 mg tablet mg 11/29/22 baclofen 11/29/22 baclofen 10 mg tablet 20 mg PO Q12H 11/29/22 11/29/22 cetirizine 10 mg tablet (Allergy 10 mg PO DAILY PRN allergy symptoms 11/29/22 11/29/22 Relief (cetirizine)) cholecalciferol (vitamin D3) 1,250 1,250 mcg PO QWEEK 11/29/22 11/29/22 mcg (50,000 unit) capsule dextromethorphan 20 mg-quinidine 1 cap PO DAILY 11/29/22 11/29/22 10 mg capsule (Nuedexta) divalproex 125 mg tablet,delayed 250 mg PO Q12H 11/29/22 11/29/22 release famotidine 20 mg tablet (Pepcid) 20 mg PO DAILY 11/29/22 11/29/22 guaifenesin 100 mg/5 mL oral 200 mg PO Q4H PRN congestion 11/29/22 11/29/22 liquid (Chest Congestion Relief) lorazepam 0.5 mg tablet (Ativan) 0.25 mg PO DAILY PRN agitation 11/29/22 11/29/22 magnesium oxide 400 mg (241.3 mg 400 mg PO DAILY 11/29/22 11/29/22 magnesium) tablet (MgO) metoprolol tartrate 25 mg tablet 25 mg PO Q12H 11/29/22 11/29/22 oxycodone 5 mg capsule 5 mg PO Q6H 11/29/22 11/29/22 sennosides 8.6 mg tablet (Natural 8.6 mg PO DAILY 11/29/22 11/29/22 Senna Laxative) topiramate 25 mg tablet (Topamax) 25 mg PO DAILY 11/29/22 11/29/22 topiramate 50 mg tablet (Topamax) 50 mg PO BID 11/29/22 11/29/22 Allergies Allergy/AdvReac Type Severity Reaction Status Date / Time PCN AdvReac Intermediate Uncoded 11/29/22 15:53 Review of Systems ROS Narrative A ten point review of systems is negative except as noted above. PFSH PFSH Social History Smoking status: Never smoker Exam Narrative Exam Narrative: Nurses note and vital signs reviewed and patient is not hypoxic. General: The patient appears well and in no apparent distress. Patient is resting comfortably on cart. he is conversing with the security and privacy consultant about ice fishing. Skin: Warm, dry, no pallor noted. There is no rash noted. Head: Normocephalic, atraumatic Eye: Normal conjunctiva, no drainage, EOMI. PERRL Ears, Nose, Mouth, and Throat: oral mucosa is moist. Nares patent. Cardiovascular: Regular Rate and Rhythm Respiratory: Patient is in no distress, no accessory muscle use, lungs are clear to auscultation, no wheezing, rales or rhonchi Back: non-tender GI: hospital and nontender Musculoskeletal: The patient has no evidence of calf tenderness, no pitting edema, symmetrical pulses noted bilaterally Neurological: awake and alert. He knows that he's in a hospital but didn't know which one. When asked what year he reported 2020. Psychiatric: Cooperative Constitutional Vital Signs, click to edit/add: Last Vital Signs Temp 97.6 F 03/29/23 10:36 Pulse 89 03/29/23 10:36 Resp 20 03/29/23 10:36 BP 137/88 03/29/23 10:36 Pulse Ox 98 03/29/23 10:36 O2 Del Method Room Air 03/29/23 10:36 Course Vital Signs Vital signs: Vital Signs Temperature 97.6 F 03/29/23 10:36 Pulse Rate 89 03/29/23 10:36 Respiratory Rate 20 03/29/23 10:36 Blood Pressure 137/88 03/29/23 10:36 Pulse Oximetry 98 03/29/23 10:36 Oxygen Delivery Method Room Air 03/29/23 10:36 Temperature 97.6 F 03/29/23 10:36 Pulse Rate 89 03/29/23 10:36 Respiratory Rate 20 03/29/23 10:36 Blood Pressure 137/88 03/29/23 10:36 Pulse Oximetry 98 03/29/23 10:36 Oxygen Delivery Method Room Air 03/29/23 10:36 Medical Decision Making MDM Narrative Medical decision making narrative: his medical workup here is negative. He's been evaluated by mental health services and they do not feel that he needs to be admitted to a hospital. He'll be released back to his extended care facility. Differential Diagnosis Differential Diagnosis: traumatic brain injury, behavioral issue Lab Data Lab results reviewed: Yes I reviewed the patient's lab results Labs: Lab Results 03/29/23 03/29/23 Range/Units 10:55 11:25 WBC 7.1 (4.0-11.0) 10^3/uL RBC 4.58 L (4.70-6.10) 10^6/uL Hgb 15.2 (14.0-18.0) g/dL Hct 46.2 (42.0-54.0) % MCV 100.9 H (80.0-94.0) fL MCH 33.2 (25.9-34.0) pg MCHC 32.9 (29.9-35.2) g/dL RDW 13.1 (11.0-15.0) % Plt Count 210 (150-450) 10^3/uL MPV 10.9 (9.5-13.5) fL Neut % (Auto) 47.4 (43.0-75.0) % Lymph % (Auto) 32.1 (20.5-60.0) % [place] % (Auto) 15.4 H (1.7-12.0) % Eos % (Auto) 4.4 (0.9-7.0) % Baso % (Auto) 0.4 (0.2-2.0) % Neut # (Auto) 3.4 (1.4-6.5) 10^3/uL Lymph # (Auto) 2.3 (1.2-3.8) 10^3/uL [place] # (Auto) 1.1 H (0.3-0.8) 10^3/uL Eos # (Auto) 0.3 (0.0-0.7) 10^3/uL Baso # (Auto) 0.0 (0.0-0.1) 10^3/uL Abs Immat Gran (auto) 0.02 (0.00-0.03) 10^3/uL Imm/Tot Granulo (auto) 0.3 (0.0-0.5) % Sodium 141 (136-145) mmol/L Potassium 3.9 (3.5-5.1) mmol/L Chloride 105 (98-107) mmol/L Carbon Dioxide 28.5 (21.0-32.0) mmol/L Anion Gap 11.4 BUN 16.0 (7.0-18.0) mg/dL Creatinine 0.95 (0.70-1.30) mg/dL Est GFR ( Amer) >60 (>=60) Est GFR (Non-Af Amer) >60 (>=60) BUN/Creatinine Ratio 16.8 Glucose 86 (74-106) mg/dL Calcium 9.0 (8.5-10.1) mg/dL Salicylates <2.8 (<=19.9) mg/dL Acetaminophen <2.0 L (10.0-30.0) ug/mL Ethanol Quant <3 mg/dL SARS-CoV-2 (PCR) Negative (NEGATIVE) Imaging Data CT scan - head: Radiologist's impression: Procedure: CT head/brain wo con EXAM: CT head/brain wo con; [id number] REASON FOR EXAM: altered behavior COMPARISON: Head CT 03/01/2023. TECHNIQUE: Axial CT images of the head obtained without contrast. Multiplanar reformats generated at the scanner. Dose reduction technique used: Automated exposure control and/or adjustment of the mA and/or kV according to patient size and/or use of iterative reconstruction technique. FINDINGS: Parenchyma: -Moderate generalized cerebral volume loss. -No midline shift or mass effect. Basilar cisterns are patent. -No acute intracranial hemorrhage. -No new loss of cortical cantu-white differentiation to indicate acute cortical infarct. -Medium-sized regions of bilateral frontal hypoattenuation encephalomalacia, similar compared with 03/01/2023 and compatible with the sequela of remote infarcts. Extra-axial spaces: No extra-axial fluid collection or hemorrhage. Ventricles: Normal in size and symmetric. Paranasal sinuses: Visualized paranasal sinuses are clear. Mastoid air cells: Visualized mastoids are clear. Orbits: No acute abnormality. Osseous: No acute findings. Soft tissues: Moderate amount of presumed cerumen in the left external auditory canal. IMPRESSION: 1. No acute intracranial abnormality demonstrated. 2. 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 Electronically authenticated by: JCARLOS MOISE Date: 03/29/2023 11:34 Discharge Plan Discharge Chief Complaint: Altered Mental Status Clinical Impression: Behavioral problem Patient Disposition: Home, Self-Care Time of Disposition Decision: 14:36 Condition: Good Mode of Transportation: Private Vehicle Prescriptions / Home Meds: No Action amantadine HCl 100 mg capsule 100 mg PO BID aspirin 81 mg capsule 81 mg PO DAILY lorazepam [Ativan] 0.5 mg tablet 0.25 mg PO DAILY PRN (Reason: agitation) atorvastatin 10 mg tablet 10 mg PO DAILY baclofen atorvastatin 10 mg tablet baclofen 10 mg tablet 20 mg PO Q12H cetirizine [Allergy Relief (cetirizine)] 10 mg tablet 10 mg PO DAILY PRN (Reason: allergy symptoms) cholecalciferol (vitamin D3) 1,250 mcg (50,000 unit) capsule 1,250 mcg PO QWEEK divalproex 125 mg tablet,delayed release (DR/EC) 250 mg PO Q12H famotidine [Pepcid] 20 mg tablet 20 mg PO DAILY metoprolol tartrate 25 mg tablet 25 mg PO Q12H Nuedexta 20-10 mg capsule 1 cap PO DAILY guaifenesin [Chest Congestion Relief] 100 mg/5 mL liquid 200 mg PO Q4H PRN (Reason: congestion) magnesium oxide [MgO] 400 mg (241.3 mg magnesium) tablet 400 mg PO DAILY oxycodone 5 mg capsule 5 mg PO Q6H sennosides [Natural Senna Laxative] 8.6 mg tablet 8.6 mg PO DAILY topiramate [Topamax] 25 mg tablet 25 mg PO DAILY topiramate [Topamax] 50 mg tablet 50 mg PO BID acetaminophen [8HR Muscle Aches-Pain] 650 mg tablet extended release 650 mg PO Q12H Instructions: Cognitive Disorders after Traumatic Brain Injury (ED) Stand Alone Forms: Portal Instructions Referrals: MARIZA BYRNE [Primary Care Provider] - 1 week
[2023-03-29 10:57] VITALS: PULSE 80
[2023-03-29 11:16] LABS: SARS-CoV-2 Ag NEGATIVE (NEGATIVE)
[2023-03-29 11:53] LABS: Basophils Percent Auto 0.4 % (0.2-2.0); Eosinophils Absolute Auto 0.3 10^3/uL (0.0-0.7); Eosinophils Percent Auto 4.4 % (0.9-7.0); Hematocrit 46.2 % (42.0-54.0); Hemoglobin 15.2 g/dL (14.0-18.0); Immature Granulocytes Abs Auto 0.02 10^3/uL (0.00-0.03); Immature Granulocytes Pct Auto 0.3 % (0.0-0.5); Lymphocytes Absolute Auto 2.3 10^3/uL (1.2-3.8); Lymphocytes Percent Auto 32.1 % (20.5-60.0); Mean Corpuscular HGB Conc 32.9 g/dL (29.9-35.2); Mean Corpuscular Hemoglobin 33.2 pg (25.9-34.0); Mean Corpuscular Volume 100.9 fL (80.0-94.0); Mean Platelet Volume 10.9 fL (9.5-13.5); Monocytes Absolute Auto 1.1 10^3/uL (0.3-0.8); Monocytes Percent Auto 15.4 % (1.7-12.0); Neutrophils Absolute Auto 3.4 10^3/uL (1.4-6.5); Neutrophils Percent Auto 47.4 % (43.0-75.0); Platelet Count 210 10^3/uL (150-450); Red Blood Count 4.58 10^6/uL (4.70-6.10); Red Cell Distribution Width 13.1 % (11.0-15.0); White Blood Count 7.1 10^3/uL (4.0-11.0)
[2023-03-29 12:21] LABS: Acetaminophen <2.0 ug/mL (10.0-30.0); Anion Gap 11.4; BUN Creatinine Ratio 16.8; Carbon Dioxide 28.5 mmol/L (21.0-32.0); Chloride 105 mmol/L (98-107); Estimated GFR (African America >60 (>=60); Estimated GFR (Non-African Ame >60 (>=60); Glucose 86 mg/dL (74-106); Potassium 3.9 mmol/L (3.5-5.1); Salicylate <2.8 mg/dL (<=19.9); Sodium 141 mmol/L (136-145)
[2023-03-29 12:22] LABS: Ethanol <3 mg/dL
[2023-03-29 16:17] LABS: SARS-CoV-2 NAA NOT DETECTED (NOT DETECTE)
== END 2023-03-29 15:10 | disposition home or self-care (01) ==
PROVIDERS: Emergency Provider Emergency Medicine; PCP Internal Medicine
DX: F91.8 Other conduct disorders (principal); Z87.820 Personal history of traumatic brain injury; Z79.82 Long term (current) use of aspirin; Z79.899 Other long term (current) drug therapy
CPT/HCPCS: 36415; 70450; 80048; 80179; 80307; 80320; 80329; 81001; 85025; 87635; 87811; 93005; 99285

== ENCOUNTER 2023-03-31 18:25 | Emergency (ER) | payer MEDICAID, SELFPAY ==
[2023-03-31 18:27] VITALS: BP 127/85; PULSE 66; RESP 18; TEMP 36.5; O2SAT 98; BMI 22.3
--- NOTE | 2023-03-31 18:27 | ECG_ITS ---
[facility] Test Date: 2023-03-31 Pat Name: ROXY MURILLO Department: Room: - Gender: Male [employer]: : [id number] Requested By: MARIZA BYRNE Order Number: [id number] Reading MD: PATTY PEREYRA Measurements Intervals [place] Rate: 69 P: 51 MD: 162 QRS: -36 QRSD: 96 T: 43 QT: 410 QTc: 430 Interpretive Statements 1100 Sinus rhythm 7200 Abnormal left axis deviation 9130 borderline ECG Compared to ECG 03/29/2023 10:52:26 Left-axis deviation now present Left anterior fascicular block no longer present Electronically Signed On 04-01-2023 7:22:04 EST by PATTY PEREYRA
[2023-03-31 18:58] LABS: Basophils Absolute Auto 0.1 10^3/uL (0.0-0.1); Basophils Percent Auto 0.7 % (0.2-2.0); Eosinophils Absolute Auto 0.3 10^3/uL (0.0-0.7); Eosinophils Percent Auto 3.9 % (0.9-7.0); Hematocrit 45.2 % (42.0-54.0); Hemoglobin 14.7 g/dL (14.0-18.0); Immature Granulocytes Abs Auto 0.02 10^3/uL (0.00-0.03); Immature Granulocytes Pct Auto 0.2 % (0.0-0.5); Lymphocytes Absolute Auto 3.5 10^3/uL (1.2-3.8); Lymphocytes Percent Auto 42.5 % (20.5-60.0); Mean Corpuscular HGB Conc 32.5 g/dL (29.9-35.2); Mean Corpuscular Hemoglobin 33.3 pg (25.9-34.0); Mean Corpuscular Volume 102.3 fL (80.0-94.0); Mean Platelet Volume 10.7 fL (9.5-13.5); Monocytes Absolute Auto 1.1 10^3/uL (0.3-0.8); Monocytes Percent Auto 12.8 % (1.7-12.0); Neutrophils Absolute Auto 3.3 10^3/uL (1.4-6.5); Neutrophils Percent Auto 39.9 % (43.0-75.0); Platelet Count 209 10^3/uL (150-450); Red Blood Count 4.42 10^6/uL (4.70-6.10); Red Cell Distribution Width 13.3 % (11.0-15.0); White Blood Count 8.3 10^3/uL (4.0-11.0)
--- NOTE | 2023-03-31 19:01 | ED_ITS ---
HPI - Psych General Chief Complaint: Psychiatric Symptoms Stated Complaint: Suicidal Time Seen by Provider: 03/31/23 18:26 Source: Reports patient Mode of arrival: ambulance Limitations: Reports no limitations History of Present Illness HPI Narrative: Patient is a 48-year-old male who presents to the emergency department for suicidal and homicidal statements at the residential where he is a resident. Patient has a traumatic brain injury, he is well-known to this emergency department and has been seen in this ER for aggression and behavior issues multiple times over the last several months. The residential staff is having difficulty managing his aggressive behaviors. The nurse practitioner taking care of the patient at the residential today filed a pink slip because the patient apparently made statements of suicidal intent although he did not have a plan. He also stated that he would like to hurt someone, anyone just because . The nurse practitioner does not feel the patient is safe around the staff of the residential and sent them back to the emergency department so that he could be placed in a psychiatric facility. Patient arrives to the ER by ambulance smiling, calm and cooperative. Related Data Home Medications Medication Instructions Recorded Confirmed acetaminophen 650 mg 650 mg PO Q12H 11/29/22 11/29/22 tablet,extended release (8HR Muscle Aches-Pain) amantadine HCl 100 mg capsule 100 mg PO BID 11/29/22 11/29/22 aspirin 81 mg capsule 81 mg PO DAILY 11/29/22 11/29/22 atorvastatin 10 mg tablet 10 mg PO DAILY 11/29/22 11/29/22 atorvastatin 10 mg tablet mg 11/29/22 baclofen 11/29/22 baclofen 10 mg tablet 20 mg PO Q12H 11/29/22 11/29/22 cetirizine 10 mg tablet (Allergy 10 mg PO DAILY PRN allergy symptoms 11/29/22 11/29/22 Relief (cetirizine)) cholecalciferol (vitamin D3) 1,250 1,250 mcg PO QWEEK 11/29/22 11/29/22 mcg (50,000 unit) capsule dextromethorphan 20 mg-quinidine 1 cap PO DAILY 11/29/22 11/29/22 10 mg capsule (Nuedexta) divalproex 125 mg tablet,delayed 250 mg PO Q12H 11/29/22 11/29/22 release famotidine 20 mg tablet (Pepcid) 20 mg PO DAILY 11/29/22 11/29/22 guaifenesin 100 mg/5 mL oral 200 mg PO Q4H PRN congestion 11/29/22 11/29/22 liquid (Chest Congestion Relief) lorazepam 0.5 mg tablet (Ativan) 0.25 mg PO DAILY PRN agitation 11/29/22 11/29/22 magnesium oxide 400 mg (241.3 mg 400 mg PO DAILY 11/29/22 11/29/22 magnesium) tablet (MgO) metoprolol tartrate 25 mg tablet 25 mg PO Q12H 11/29/22 11/29/22 oxycodone 5 mg capsule 5 mg PO Q6H 11/29/22 11/29/22 sennosides 8.6 mg tablet (Natural 8.6 mg PO DAILY 11/29/22 11/29/22 Senna Laxative) topiramate 25 mg tablet (Topamax) 25 mg PO DAILY 11/29/22 11/29/22 topiramate 50 mg tablet (Topamax) 50 mg PO BID 11/29/22 11/29/22 Allergies Allergy/AdvReac Type Severity Reaction Status Date / Time PCN AdvReac Intermediate Uncoded 11/29/22 15:53 Review of Systems ROS Constitutional Denies: fever or chills Ears, nose, mouth, and throat Denies: throat pain Cardiovascular Denies: chest pain Respiratory Denies: shortness of breath or cough Gastrointestinal Denies: nausea or vomiting Musculoskeletal Denies: back pain Integumentary/Breast Denies: rash Neurological Denies: headache PFSH PFSH Social History Smoking status: Former smoker Exam Narrative Exam Narrative: Gen.: Awake, alert, in no distress Head: Normocephalic, atraumatic ENT: Moist mucous membranes Respiratory: No respiratory distress, lungs clear bilaterally Cardio: Regular rate and rhythm Gastrointestinal: Abdomen is soft, nondistended and nontender to palpation Extremities: Moves extremities equally, no injuries noted Psych: Normal mood and affect Neuro: No focal neuro deficit Skin: Warm, dry, intact Constitutional Vital Signs, click to edit/add: Last Vital Signs Temp 97.7 F 03/31/23 18:27 Pulse 78 03/31/23 22:33 Resp 16 03/31/23 22:33 BP 135/91 03/31/23 22:33 Pulse Ox 96 03/31/23 22:33 O2 Del Method Room Air 03/31/23 22:33 Course Vital Signs Vital signs: Vital Signs Temperature 97.7 F 03/31/23 18:27 Pulse Rate 66 03/31/23 18:27 Respiratory Rate 18 03/31/23 18:27 Blood Pressure 127/85 03/31/23 18:27 Pulse Oximetry 98 03/31/23 18:27 Temperature 97.7 F 03/31/23 18:27 Pulse Rate 78 03/31/23 22:33 Respiratory Rate 16 03/31/23 22:33 Blood Pressure 135/91 03/31/23 22:33 Pulse Oximetry 96 03/31/23 22:33 Oxygen Delivery Method Room Air 03/31/23 22:33 MDM - Psych MDM Narrative Medical decision making narrative: Lab studies obtained, we contacted [facility] immediately on the patient's arrival as there was a pink slip involved in the patient's presentation tonight with suicidal and homicidal statements per the nurse practitioner at the residential. Patient has no suicidal or homicidal ideation in the ER. He is calm and cooperative with staff. He was given his as needed Ativan that is scheduled for him. His mother presented to the emergency department, she does not feel he represents a suicidal or homicidal risk. Patient has had multiple similar presentations in the ER, he was safety planned 2 days ago from this ER for the same. [facility]'s counseling, Maeve, discussed the case with the patient's mother over the phone. I expressed my concern about the patient being discharged back to his residence without discussing the case with the director of software development or the nurse practitioner who filed the pink slip for the patient. Multiple attempts were made to get a hold of the director of software development at [place], the attending physician taking care of the patient or the nurse practitioner who referred the patient to the ER, we were not able to get a hold of anybody and there is no indication for transfer to psychiatric in patient facility at this time. Patient will be discharged back to [place], his mother is in agreement with this treatment plan. He is calm and cooperative with stable vital signs and unremarkable workup in the ER. Medical Records Attestation: I reviewed the patient's medical records. Lab Data Attestation: I reviewed the patient's lab results. Labs: Lab Results 03/31/23 Range/Units 18:34 WBC 8.3 (4.0-11.0) 10^3/uL RBC 4.42 L (4.70-6.10) 10^6/uL Hgb 14.7 (14.0-18.0) g/dL Hct 45.2 (42.0-54.0) % MCV 102.3 H (80.0-94.0) fL MCH 33.3 (25.9-34.0) pg MCHC 32.5 (29.9-35.2) g/dL RDW 13.3 (11.0-15.0) % Plt Count 209 (150-450) 10^3/uL MPV 10.7 (9.5-13.5) fL Neut % (Auto) 39.9 L (43.0-75.0) % Lymph % (Auto) 42.5 (20.5-60.0) % [place] % (Auto) 12.8 H (1.7-12.0) % Eos % (Auto) 3.9 (0.9-7.0) % Baso % (Auto) 0.7 (0.2-2.0) % Neut # (Auto) 3.3 (1.4-6.5) 10^3/uL Lymph # (Auto) 3.5 (1.2-3.8) 10^3/uL [place] # (Auto) 1.1 H (0.3-0.8) 10^3/uL Eos # (Auto) 0.3 (0.0-0.7) 10^3/uL Baso # (Auto) 0.1 (0.0-0.1) 10^3/uL Abs Immat Gran (auto) 0.02 (0.00-0.03) 10^3/uL Imm/Tot Granulo (auto) 0.2 (0.0-0.5) % Sodium 141 (136-145) mmol/L Potassium 3.8 (3.5-5.1) mmol/L Chloride 105 (98-107) mmol/L Carbon Dioxide 27.6 (21.0-32.0) mmol/L Anion Gap 12.2 BUN 16.0 (7.0-18.0) mg/dL Creatinine 0.93 (0.70-1.30) mg/dL Est GFR ( Amer) >60 (>=60) Est GFR (Non-Af Amer) >60 (>=60) BUN/Creatinine Ratio 17.2 Glucose 98 (74-106) mg/dL Calcium 8.9 (8.5-10.1) mg/dL Total Bilirubin 0.2 (0.2-1.0) mg/dL AST 12 L (15-37) U/L ALT 45 (16-63) U/L Alkaline Phosphatase 71 (46-116) U/L Total Protein 7.4 (6.4-8.2) g/dL Albumin 3.7 (3.4-5.0) g/dL Globulin 3.7 g/dL Albumin/Globulin Ratio 1.0 Salicylates <2.8 (<=19.9) mg/dL Urine Opiates Screen Negative (NEGATIVE) Ur Buprenorphine Scrn Negative (NEGATIVE) Ur Oxycodone Screen Negative (NEGATIVE) Urine Methadone Screen Negative (NEGATIVE) Acetaminophen 3.5 L (10.0-30.0) ug/mL Ur Barbiturates Screen Negative (NEGATIVE) U Tricyclic Antidepress Negative (NEGATIVE) Ur Phencyclidine Scrn Negative (NEGATIVE) Ur Amphetamines Screen Negative (NEGATIVE) U Methamphetamines Scrn Negative (NEGATIVE) U Benzodiazepines Scrn Positive A (NEGATIVE) Urine Cocaine Screen Negative (NEGATIVE) U Cannabinoids Screen Negative (NEGATIVE) Ethanol Quant <3 mg/dL SARS-CoV-2 (PCR) Negative (NEGATIVE) ECG Data Attestation: I personally reviewed and interpreted this ECG as follows: (Normal sinus rhythm at a rate of 69, no acute ST elevation or ectopy. EKG reviewed by attending physician) Discharge Plan Discharge Chief Complaint: Psychiatric Symptoms Clinical Impression: Traumatic brain injury, Agitation Patient Disposition: Home, Self-Care Time of Disposition Decision: 21:41 Condition: Good Mode of Transportation: EMS Prescriptions / Home Meds: No Action amantadine HCl 100 mg capsule 100 mg PO BID aspirin 81 mg capsule 81 mg PO DAILY lorazepam [Ativan] 0.5 mg tablet 0.25 mg PO DAILY PRN (Reason: agitation) atorvastatin 10 mg tablet 10 mg PO DAILY baclofen atorvastatin 10 mg tablet baclofen 10 mg tablet 20 mg PO Q12H cetirizine [Allergy Relief (cetirizine)] 10 mg tablet 10 mg PO DAILY PRN (Reason: allergy symptoms) cholecalciferol (vitamin D3) 1,250 mcg (50,000 unit) capsule 1,250 mcg PO QWEEK divalproex 125 mg tablet,delayed release (DR/EC) 250 mg PO Q12H famotidine [Pepcid] 20 mg tablet 20 mg PO DAILY metoprolol tartrate 25 mg tablet 25 mg PO Q12H Nuedexta 20-10 mg capsule 1 cap PO DAILY guaifenesin [Chest Congestion Relief] 100 mg/5 mL liquid 200 mg PO Q4H PRN (Reason: congestion) magnesium oxide [MgO] 400 mg (241.3 mg magnesium) tablet 400 mg PO DAILY oxycodone 5 mg capsule 5 mg PO Q6H sennosides [Natural Senna Laxative] 8.6 mg tablet 8.6 mg PO DAILY topiramate [Topamax] 25 mg tablet 25 mg PO DAILY topiramate [Topamax] 50 mg tablet 50 mg PO BID acetaminophen [8HR Muscle Aches-Pain] 650 mg tablet extended release 650 mg PO Q12H Instructions: Cognitive Disorders after Traumatic Brain Injury (ED) Stand Alone Forms: Portal Instructions Referrals: MARIZA BYRNE [Primary Care Provider] - 1 week Discharge Date/Time: 03/31/23 23:08
[2023-03-31 19:06] LABS: Cannabinoid Screen Urine NEGATIVE (NEGATIVE)
[2023-03-31 19:07] LABS: Amphetamine Screen Urine NEGATIVE (NEGATIVE); Barbiturates Screen Urine NEGATIVE (NEGATIVE); Benzodiazepines Screen Urine POSITIVE (NEGATIVE); Buprenorphine Screen Urine NEGATIVE (NEGATIVE); Cocaine Screen Urine NEGATIVE (NEGATIVE); Methadone Screen Urine NEGATIVE (NEGATIVE); Methamphetamines Screen Urine NEGATIVE (NEGATIVE); Opiate Screen Urine NEGATIVE (NEGATIVE); Oxycodone Screen Urine NEGATIVE (NEGATIVE); Phencyclidine Screen Urine NEGATIVE (NEGATIVE); Tricyclic Antidepressant Urine NEGATIVE (NEGATIVE)
[2023-03-31 19:16] LABS: SARS-CoV-2 Ag NEGATIVE (NEGATIVE)
[2023-03-31 19:22] LABS: Acetaminophen 3.5 ug/mL (10.0-30.0); Alanine Aminotransferase 45 U/L (16-63); Albumin Level 3.7 g/dL (3.4-5.0); Alkaline Phosphatase 71 U/L (46-116); Anion Gap 12.2; Aspartate Amino Transferase 12 U/L (15-37); BUN Creatinine Ratio 17.2; Bilirubin Total 0.2 mg/dL (0.2-1.0); Calcium 8.9 mg/dL (8.5-10.1); Carbon Dioxide 27.6 mmol/L (21.0-32.0); Chloride 105 mmol/L (98-107); Estimated GFR (African America >60 (>=60); Estimated GFR (Non-African Ame >60 (>=60); Globulin 3.7 g/dL; Glucose 98 mg/dL (74-106); Potassium 3.8 mmol/L (3.5-5.1); Salicylate <2.8 mg/dL (<=19.9); Sodium 141 mmol/L (136-145); Total Protein 7.4 g/dL (6.4-8.2)
[2023-03-31 19:36] LABS: Ethanol <3 mg/dL
[2023-03-31] MEDS: LORAZEPAM 0.5 MG TABLET PO (21:12)
--- NOTE | 2023-03-31 22:03 | PC.NURSE ---
Report called to Radha at [facility] [phone]
[2023-03-31] MEDS: OXYCODONE HCL/ACETAMINOPHEN 5MG/325MG 1 TAB PO (22:25)
[2023-03-31 22:33] VITALS: BP 135/91; PULSE 78; RESP 16; O2SAT 96
[2023-04-01 12:34] LABS: SARS-CoV-2 NAA NOT DETECTED (NOT DETECTE)
== END 2023-03-31 23:08 | disposition home or self-care (01) ==
PROVIDERS: Physician Assistant; Emergency Provider Emergency Medicine; PCP Internal Medicine
DX: R45.1 Restlessness and agitation (principal); Z87.820 Personal history of traumatic brain injury; Z79.82 Long term (current) use of aspirin; Z79.899 Other long term (current) drug therapy; Z87.891 Personal history of nicotine dependence; Z20.822 Contact with and (suspected) exposure to COVID-19
CPT/HCPCS: 36415; 80053; 80179; 80307; 80320; 80329; 85025; 87635; 87811; 93005; 99284